=== PATIENT | female | born 1985 | race Two or more races ===

== ENCOUNTER 2025-09-19 14:44 | Inpatient (IN) | payer OTHER ==
[2025-09-19] VITALS (7 sets, daily range): BP systolic 93–119; BP diastolic 55–65
[~2025-09-19] VITALS: Ht 170.2 cm; Wt 72.6 kg
[2025-09-19] MEDS ORDERED: RINGERS SOLUTION,LACTATED 1,000 ML IV SCH (15:15)
[2025-09-19] MEDS ORDERED: AMPICILLIN SODIUM 2,000 MG VIAL IV NR (15:15)
[2025-09-19] MEDS ORDERED: PRENATAL TABLE1 EAC1 PO (15:28)
[2025-09-19 15:31] LABS: BASO % 0.6 % (0.1-1.2); EOS # 0.14 (0.04-0.54); EOS % 1.2 % (0.7-7.0); LYMPH # 1.57 (1.18-3.74); LYMPH % 13.8 % (19.3-53.1); MEAN PLATELET VOLUME 12.00 fl (9.4-12.4); MONO # 0.67 (0.24-0.82); MONO % 5.9 % (4.7-12.5); NEUT # 8.87 (1.56-6.13); NEUT % 78.0 % (34.0-71.1); RED CELL DISTRIBUTION WIDTH 13.0 % (11.6-14.4)
[2025-09-19 15:51] LABS: INR < 0.93
[2025-09-19] MEDS ORDERED: MORPHINE SULFATE 4 MG/ML CARTRIDGE IV STA (16:52)
[2025-09-19] MEDS ORDERED: OXYTOCIN 500 ML IV ONE (17:00)
[2025-09-19] MEDS ORDERED: CHLORHEXIDINE GLUCONATE 120 ML BOTTLE TOP SCH (18:15)
[2025-09-19] MEDS ORDERED: ACETAMINOPHEN WITH CODEINE 1 UDTAB TABLET PO PRN (18:15)
[2025-09-19] MEDS ORDERED: OXYTOCIN 1,000 ML IV SCH (18:15)
[2025-09-19] MEDS ORDERED: HYDROCORTISONE 2.5% 30 GM TUBE TOP SCH (18:16)
[2025-09-19] MEDS ORDERED: ERYTHROMYCIN BASE OPHT 1GM EACH TUBE OP ONE (18:45)
[2025-09-19] MEDS ORDERED: LIDOCAINE HCL 1% 10ML VIAL IJ ONE (18:45)
[2025-09-19] MEDS ORDERED: AMPICILLIN SODIUM 1,000 MG VIAL IV SCH (20:00)
[2025-09-19] MEDS ORDERED: SENNA/DOCUSATE SODIUM 1 TAB TABLET PO SCH (21:00)
[2025-09-20] VITALS: BP 100/59
[2025-09-20 08:00] VITALS: BP 90/59
[2025-09-20] MEDS ORDERED: HYDROCORTISONE 2.5% 30 GM TUBE TOP SCH (09:00)
[2025-09-20 16:31] VITALS: BP 106/66
[2025-09-21 00:13] VITALS: BP 98/62
[2025-09-21 08:21] VITALS: BP 93/60
== END 2025-09-21 10:54 | disposition home or self-care (01) | DRG 805 ==
LOC: OB/GYN 14:44 → LDR 14:44 → OB/GYN 15:49
PROVIDERS: ADMIT Obstetrics & Gynecology; ATTEND Obstetrics & Gynecology
PROC: 10E0XZZ Delivery of Products of Conception, External Approach (ICD-10-PCS; principal; 2025-09-19)
PROC: 0UQG7ZZ Repair Vagina, Via Natural or Artificial Opening (ICD-10-PCS; 2025-09-19)
PROC: 4A1HXCZ Monitoring of Products of Conception, Cardiac Rate, External Approach (ICD-10-PCS; 2025-09-19)
DX: O71.4 Obstetric high vaginal laceration alone (principal); O60.14X0 Preterm labor third trimester with preterm delivery third trimester, not applicable or unspecified; Z37.0 Single live birth; Z3A.36 36 weeks gestation of pregnancy